=== PATIENT | female | born 1965 | race Caucasian/White ===

== ENCOUNTER → 2017-02-19 | Outpatient (CLI) | payer BC ==
[~2017-02-19] MED LIST: BENTYL20 MG PO; CITALOPRAM HBR20 MG PO; CYCLOBENZAPRINE5 MG; MICROGESTIN1 EAC1 PO; PANTOPRAZOLE SO40 MG PO; ZOVIRAX200 MG PO
[2017-02-19 17:07] LABS: APPEARANCE CLEAR/COLORLESS
[2017-02-19 17:08] LABS: RED CELL DILUTION 1
[2017-02-19 17:09] LABS: RED CELL AREA COUNTED 18; WBC AREA COUNTED 18; WBC DILUTION 1
[2017-02-19 17:10] LABS: RED CELL COUNT 2 /MM^3 (0-1); WHITE CELL COUNT 0 /MM^3 (0-5); WHITE CELL RAW COUNT 0
== END | disposition home or self-care (01) ==
LOC: RAD 14:56
PROVIDERS: Psychiatry & Neurology Clinical Neurophysiology
PROC: 009U3ZZ Drainage of Spinal Canal, Percutaneous Approach (ICD-10-PCS; principal; 2017-02-19)
DX: G37.9 Demyelinating disease of central nervous system, unspecified (principal); B99.9 Unspecified infectious disease
CPT/HCPCS: 62270; 77003; 82945; 83873 90; 83916 90; 84157; 87205; 89051